=== PATIENT | male | born 1935 | race Caucasian/White ===

== ENCOUNTER 2018-04-04 23:22 | Inpatient (IN) | payer MEDICARE ==
[~2018-04-04] VITALS: Ht 180.3 cm; Wt 104.4 kg
[~2018-04-04 23:22] MED LIST: ALLO100T PO; ASPI-555 PO; CYAN10009 PO; FISH1CAP63 PO; FOLI0.4T2 PO; FURO40TA5 PO; GLIM2TAB3 PO; INSU100V12 SQ; METO-408 PO; MULT-1289 PO; SIMV40TA5 PO; TEST30SO3 TD
[2018-04-04 23:57] LABS: BASOPHILS % (AUTO) 2.3 % (0.0-5.0); EOSINOPHILS % (AUTO) 4.6 % (0.0-8.0); HEMATOCRIT 47.1 % (42-54); LYMPHOCYTES % (AUTO) 15.5 % (21.0-51.0); MEAN CORPUSCULAR HEMOGLOBIN 34.6 pg (27.0-33.0); MEAN CORPUSCULAR HGB CONC 33.4 g/dL (32.0-36.0); MEAN CORPUSCULAR VOLUME 103.6 fL (79-99); MONOCYTES % (AUTO) 21.1 % (3.0-13.0); NEUTROPHILS % (AUTO) 56.5 % (40.0-77.0); PLATELET COUNT (AUTO) 159 K/uL (130-400); RED BLOOD CELL COUNT(AUTO) 4.55 MIL/uL (4.50-6.20); WHITE BLOOD COUNT (AUTO) 15.7 K/uL (4.8-10.8)
[2018-04-05 00:02] LABS: CREATININE 1.7 mg/dL (0.5-1.5); POTASSIUM 3.7 mmol/L (3.5-5.1)
[2018-04-05] MEDS ORDERED: MORPHINE SULFATE 2 MG/ML 1ML SYG ONE (00:04)
[2018-04-05 00:14] LABS: ALBUMIN 3.6 g/dL (3.5-5.0); BILIRUBIN,TOTAL 0.8 mg/dL (0.2-1.0)
[2018-04-05 00:16] LABS: BAND NEUTROPHILS % (MANUAL) 2 % (0-2); EOSINOPHILS % (MANUAL) 5 % (1-6); LYMPHOCYTES % (MANUAL) 18 % (22-44); MAN.DIFF COMMENT-IMPRESSION MANUAL DIFFERENTIAL; MONOCYTES % (MANUAL) 24 % (2-9); PLATELET MORPHOLOGY COMMENT ADEQUATE; SEGMENTED NEUTROPHILS % 51 % (40-70)
[2018-04-05 00:16] LABS: APPEARANCE,URINE Clear (CLEAR); BILIRUBIN,URINE Negative (NEGATIVE); COLOR,URINE Yellow (YELLOW); GLUCOSE, URINE (UA) Negative (NEGATIVE); KETONES,URINE Negative (NEGATIVE); LEUKOCYTE ESTERASE ,URINE Negative (NEGATIVE); NITRATE,URINE Negative (NEGATIVE); OCCULT BLOOD,URINE Negative (NEGATIVE); PH,URINE 5.5 (5.0-8.0); PROTEIN,URINE Negative (NEGATIVE)
[2018-04-05] MEDS ORDERED: SODIUM CHLORIDE 0.9% 1000ML 1,000 ML IV ONE (00:31)
[2018-04-05] MEDS ORDERED: TAMSULOSIN HCL 0.4 MG CAP.ER.24H ONE (00:31)
[2018-04-05 01:27] VITALS: BP 128/63
[2018-04-05] MEDS ORDERED: ACETAMINOPHEN 325 MG TAB PO PRN (01:45)
[2018-04-05] MEDS ORDERED: ONDANSETRON HCL 4 MG/2 ML VIAL IV PRN (01:45)
[2018-04-05] MEDS: SODIUM CHLORIDE 0.9% 1000ML 1,000 ML IV SCH ×4 (01:45→21:45)
[2018-04-05] MEDS: CEFTRIAXONE SODIUM 1 GM IV SCH (01:45)
[2018-04-05] MEDS ORDERED: MORPHINE SULFATE 2 MG/ML 1ML SYG IV PRN (01:45)
[2018-04-05] MEDS ORDERED: CEFTRIAXONE SODIUM 1 GM ONE (02:14)
[2018-04-05] MEDS ORDERED: MORPHINE SULFATE 4 MG/1ML SYG ONE (03:03)
[2018-04-05] MEDS ORDERED: OMEG1CAP67 PO (03:13)
[2018-04-05] MEDS ORDERED: ALLO100T PO (03:13)
[2018-04-05] MEDS ORDERED: INSU100V12 SQ (03:13)
[2018-04-05] MEDS ORDERED: DEXTROSE 50%-WATER 50 ML DISP.SYRIN IV PRN (03:30)
[2018-04-05] MEDS ORDERED: GLUCAGON 1MG KIT 1 MG ML IM PRN (03:30)
[2018-04-05 03:55] VITALS: BP 120/62
[2018-04-05] MEDS: INSULIN HUMULIN R 100 UNIT/ML 3ML SQ SCH ×4 (05:48→21:00)
[2018-04-05 07:30] VITALS: BP 123/61
[2018-04-05] MEDS: CYANOCOBALAMIN (VITAMIN B-12) 1,000 MCG TABLET PO SCH (08:20)
[2018-04-05] MEDS: METOPROLOL TARTRATE 25 MG TAB PO SCH ×2 (08:20→22:41)
[2018-04-05] MEDS: TAMSULOSIN HCL 0.4 MG CAP.ER.24H PO SCH (08:21)
[2018-04-05] MEDS: FUROSEMIDE 40 MG TABLET PO SCH (08:21)
[2018-04-05] MEDS: FOLIC ACID 1 MG TABLET PO SCH (08:21)
[2018-04-05] MEDS: ASPIRIN 81 MG EC TAB PO SCH (08:21)
[2018-04-05] MEDS: FAMOTIDINE 20MG TAB 20 MG TAB PO SCH ×2 (08:21→22:41)
[2018-04-05] MEDS: ENOXAPARIN SODIUM 40 MG/0.4 ML SYRINGE SQ SCH (08:24)
[2018-04-05] MEDS ORDERED: LACTULOSE 20 GM/30 ML UDCUP PO SCH (09:45)
[2018-04-05] MEDS ORDERED: KETOROLAC TROMETHAMINE 15MG/ML IM PRN (10:15)
[2018-04-05 11:30] VITALS: BP 124/69
[2018-04-05 12:37] LABS: MEAN CORPUSCULAR HEMOGLOBIN 34.6 pg (27.0-33.0); MEAN CORPUSCULAR HGB CONC 33.7 g/dL (32.0-36.0); MEAN CORPUSCULAR VOLUME 102.8 fL (79-99); PLATELET COUNT (AUTO) 147 K/uL (130-400); RED BLOOD CELL COUNT(AUTO) 4.67 MIL/uL (4.50-6.20); RED CELL DISTRIBUTION WIDTH 14.9 % (11.0-15.5)
[2018-04-05 12:45] LABS: CREATININE 1.6 mg/dL (0.5-1.5); POTASSIUM 3.8 mmol/L (3.5-5.1)
[2018-04-05] MEDS ORDERED: HYDROCODONE/ACETAMINOPHEN 5/325 MG TAB PO PRN (14:15)
[2018-04-05 16:00] VITALS: BP 117/55
[2018-04-05 20:42] VITALS: BP 123/61
[2018-04-05] MEDS ORDERED: SIMVASTATIN 20 MG TABLET PO SCH (21:00)
[2018-04-06] VITALS (24 sets, daily range): BP systolic 108–144; BP diastolic 53–72
[2018-04-06] MEDS: CEFTRIAXONE SODIUM 1 GM IV SCH (01:10)
[2018-04-06] MEDS: SODIUM CHLORIDE 0.9% 1000ML 1,000 ML IV SCH (01:12)
[2018-04-06] MEDS: INSULIN HUMULIN R 100 UNIT/ML 3ML SQ SCH ×3 (05:43→16:30)
[2018-04-06 06:20] LABS: BASOPHILS % (AUTO) 1.4 % (0.0-5.0); HEMATOCRIT 42.3 % (42-54); LYMPHOCYTES % (AUTO) 14.9 % (21.0-51.0); MEAN CORPUSCULAR HEMOGLOBIN 35.3 pg (27.0-33.0); MEAN CORPUSCULAR HGB CONC 34.3 g/dL (32.0-36.0); MONOCYTES % (AUTO) 29.4 % (3.0-13.0); NEUTROPHILS % (AUTO) 50.3 % (40.0-77.0); NUCLEATED RED BLOOD CELLS 0.1 % (0.0-0.19); PLATELET COUNT (AUTO) 130 K/uL (130-400); RED BLOOD CELL COUNT(AUTO) 4.11 MIL/uL (4.50-6.20); RED CELL DISTRIBUTION WIDTH 14.2 % (11.0-15.5); WHITE BLOOD COUNT (AUTO) 10.3 K/uL (4.8-10.8)
[2018-04-06 06:25] LABS: INR 1.09 (0.85-1.15); PROTHROMBIN TIME 11.4 SEC (9.6-11.6)
[2018-04-06 06:31] LABS: ALBUMIN 2.8 g/dL (3.5-5.0); BILIRUBIN,TOTAL 0.8 mg/dL (0.2-1.0); POTASSIUM 3.9 mmol/L (3.5-5.1); TOTAL PROTEIN, SERUM 5.7 g/dL (6.0-8.3)
[2018-04-06] MEDS ORDERED: MIDAZOLAM HCL 1 MG/ML 2ML VIAL ONE (08:52)
[2018-04-06] MEDS ORDERED: LIDOCAINE PF 2% 5ML ABBOJECT ONE (08:52)
[2018-04-06] MEDS ORDERED: FENTANYL CITRATE PF 50 MCG/1 ML 2ML VIAL ONE (08:52)
[2018-04-06] MEDS ORDERED: ONDANSETRON HCL 4 MG/2 ML VIAL ONE (08:52)
[2018-04-06] MEDS ORDERED: DEXAMETHASONE SOD PHOSPHATE 10MG/ML 1ML VIAL ONE (08:52)
[2018-04-06] MEDS ORDERED: PROPOFOL 10 MG/ML 20ML VIAL IV ONE (08:52)
[2018-04-06] MEDS: FUROSEMIDE 40 MG TABLET PO SCH (09:00)
[2018-04-06] MEDS: ENOXAPARIN SODIUM 40 MG/0.4 ML SYRINGE SQ SCH (09:00)
[2018-04-06] MEDS: FAMOTIDINE 20MG TAB 20 MG TAB PO SCH (09:00)
[2018-04-06] MEDS: CYANOCOBALAMIN (VITAMIN B-12) 1,000 MCG TABLET PO SCH (09:00)
[2018-04-06] MEDS: METOPROLOL TARTRATE 25 MG TAB PO SCH (09:00)
[2018-04-06] MEDS: FOLIC ACID 1 MG TABLET PO SCH (09:00)
[2018-04-06] MEDS: TAMSULOSIN HCL 0.4 MG CAP.ER.24H PO SCH (09:00)
[2018-04-06] MEDS: ASPIRIN 81 MG EC TAB PO SCH (09:00)
[2018-04-06] MEDS ORDERED: IOHEXOL-350 50ML VIAL IV ONE (09:07)
[2018-04-06] MEDS ORDERED: EPHEDRINE SULFATE 50 MG/ML AMPULE ONE (09:11)
== END 2018-04-06 17:55 | disposition home or self-care (01) | DRG 661 ==
LOC: EDH 23:22 → OBSVTOIN 04-05 00:50 → EDHIP 04-05 00:50 → 3DH 04-05 01:29
PROVIDERS: ADMIT Hospitalist; ATTEND Hospitalist
PROC: 0T778DZ Dilation of Left Ureter with Intraluminal Device, Via Natural or Artificial Opening Endoscopic (ICD-10-PCS; principal; 2018-04-06 09:00)
PROC: BT1F1ZZ Fluoroscopy of Left Kidney, Ureter and Bladder using Low Osmolar Contrast (ICD-10-PCS; 2018-04-06 09:00)
DX: N13.2 Hydronephrosis with renal and ureteral calculous obstruction (principal); D72.829 Elevated white blood cell count, unspecified; E11.65 Type 2 diabetes mellitus with hyperglycemia; I10 Essential (primary) hypertension; E78.5 Hyperlipidemia, unspecified; K43.9 Ventral hernia without obstruction or gangrene; K44.9 Diaphragmatic hernia without obstruction or gangrene; K57.90 Diverticulosis of intestine, part unspecified, without perforation or abscess without bleeding; Z79.4 Long term (current) use of insulin; Z85.828 Personal history of other malignant neoplasm of skin; Z88.8 Allergy status to other drugs, medicaments and biological substances; Z80.9 Family history of malignant neoplasm, unspecified; Z83.6 Family history of other diseases of the respiratory system; Z82.3 Family history of stroke; Z83.3 Family history of diabetes mellitus; Z82.49 Family history of ischemic heart disease and other diseases of the circulatory system; N28.9 Disorder of kidney and ureter, unspecified
CPT/HCPCS: 36415; 71045; 74176; 74420; 78700; 80048; 80053; 80061; 81003; 82948; 85025; 85027; 85610; 93005; A4218; A9562; C1894; C2617; J0696; J1100; J1650; J2001; J2250; J2270; J2405; J2704; J3010; J3490; J7030; Q9967

== ENCOUNTER → 2019-04-06 | Outpatient (CLI) | payer MEDICARE ==
[~2019-04-06] MED LIST changes: +CYAN-52 PO; -CYAN10009 PO; -FISH1CAP63 PO; -GLIM2TAB3 PO; +GLIM2TAB4 PO; +OMEG1CAP67 PO; +SIMV-46 PO; -SIMV40TA5 PO
== END | disposition home or self-care (01) ==
LOC: RAH 15:25
PROVIDERS: ATTEND Internal Medicine Cardiovascular Disease
DX: R06.02 Shortness of breath (principal)
CPT/HCPCS: 71046

== ENCOUNTER → 2019-04-28 | Outpatient (CLI) | payer MEDICARE ==
[~2019-04-28] MED LIST changes: +REGADENOSON 0.4 MG/5 ML PF SYG IVP SCH
== END | disposition home or self-care (01) ==
LOC: RAH 08:11
PROVIDERS: ATTEND Internal Medicine Cardiovascular Disease
DX: I24.9 Acute ischemic heart disease, unspecified (principal); R06.02 Shortness of breath
CPT/HCPCS: 78452; 93017; 96374; A9500 ×2; J2785

== ENCOUNTER 2019-08-07 06:43 | Day surgery (SDC) | payer MEDICARE ==
[~2019-08-07] VITALS: Ht 177.8 cm; Wt 101.4 kg
[~2019-08-07 06:43] MED LIST changes: +GLIM2TAB30 PO; -GLIM2TAB4 PO; -REGADENOSON 0.4 MG/5 ML PF SYG IVP SCH; +SODIUM CHLORIDE 0.9% 1000ML 0 ML IV ONE
[2019-08-07 08:24] VITALS: BP 113/60
[2019-08-07] MEDS ORDERED: LOSA25TA41 PO (08:40)
[2019-08-07] MEDS ORDERED: ISOS10TA2 PO (08:40)
--- NOTE | 2019-08-07 08:56 | NUR ---
COUGH [employer] INFORMED THAT PATIENT HAS HAD COUGH WITH PHLEGM, PT COUGH NOTED WITH HARSH COUGH, ANESTHESIA INFORMED EVALUATED PATIENT , STATES PT SHOULD RESCHEDULED DUE TO COUGH AND CONGESTION. DR. MAYFIELD ALSO EVALUTED PATIENT PT TO RESCHEDULE PROCEDURE FOR AFTER AUGUST 18 2019
== END 2019-08-07 09:00 | disposition home or self-care (01) ==
LOC: ENDO 06:43 → DAH 06:43 → ENDO 09:00
PROVIDERS: ATTEND Internal Medicine Gastroenterology
DX: K22.2 Esophageal obstruction (principal); Z53.8 Procedure and treatment not carried out for other reasons; Z88.8 Allergy status to other drugs, medicaments and biological substances; Z79.82 Long term (current) use of aspirin; Z79.899 Other long term (current) drug therapy; Z79.4 Long term (current) use of insulin; Z82.49 Family history of ischemic heart disease and other diseases of the circulatory system; Z83.3 Family history of diabetes mellitus; Z82.3 Family history of stroke
CPT/HCPCS: 82948; J7030

== ENCOUNTER → 2022-05-08 | Outpatient (CLI) | payer MEDICARE ==
[~2022-05-08] MED LIST changes: -ASPI-555 PO; +ASPI-556 PO; -FOLI0.4T2 PO; +FOLI0.4T6 PO; -FURO40TA5 PO; -GLIM2TAB30 PO; +ISOS10TA2 PO; +LOSA25TA41 PO; +OMEG-133 PO; -OMEG1CAP67 PO; -SODIUM CHLORIDE 0.9% 1000ML 0 ML IV ONE; -TEST30SO3 TD
== END | disposition home or self-care (01) ==
LOC: RAH 10:21
PROVIDERS: ATTEND Student in an Organized Health Care Education/Training Program
DX: D47.9 Neoplasm of uncertain behavior of lymphoid, hematopoietic and related tissue, unspecified (principal); R59.0 Localized enlarged lymph nodes
CPT/HCPCS: 76882

== ENCOUNTER → 2022-06-13 | Outpatient (CLI) | payer MEDICARE ==
[2022-06-13 09:37] LABS: INR 1.1 (0.85-1.15); PROTHROMBIN TIME 11.9 SEC (9.6-11.6)
== END | disposition home or self-care (01) ==
LOC: LAB 08:46
PROVIDERS: ATTEND Student in an Organized Health Care Education/Training Program
DX: R59.0 Localized enlarged lymph nodes (principal); D47.9 Neoplasm of uncertain behavior of lymphoid, hematopoietic and related tissue, unspecified
CPT/HCPCS: 36415; 85610; 85730

== ENCOUNTER → 2022-06-14 | Outpatient (CLI) | payer MEDICARE | END | disposition home or self-care (01) | LOC: RAH 07:13 | PROVIDERS: ATTEND Student in an Organized Health Care Education/Training Program | DX: R59.0 Localized enlarged lymph nodes (principal); D47.9 Neoplasm of uncertain behavior of lymphoid, hematopoietic and related tissue, unspecified | CPT/HCPCS: 76882 ==

== ENCOUNTER 2023-01-09 11:14 | Observation (INO) | payer MEDICARE, OTHER ==
[~2023-01-09] VITALS: Ht 180.3 cm; Wt 98.4 kg
[2023-01-09 11:43] LABS: BASOPHILS # (AUTO) 0.17 K/uL (0.00-0.20); BASOPHILS % (AUTO) 1.3 % (0.0-5.0); EOSINOPHILS # (AUTO) 0.46 K/uL (0.00-0.70); EOSINOPHILS % (AUTO) 3.4 % (0.0-8.0); HEMATOCRIT 37.5 % (42-54); IMMATURE GRANULOCYTE ABSOLUTE 1.07 K/uL (0-1); LYMPHOCYTES # (AUTO) 5.2 K/uL (1.0-4.8); LYMPHOCYTES % (AUTO) 38.4 % (21.0-51.0); MEAN CORPUSCULAR HEMOGLOBIN 33.6 pg (27.0-33.0); MEAN CORPUSCULAR HGB CONC 33.9 g/dL (32.0-36.0); MEAN CORPUSCULAR VOLUME 99.2 fL (79-99); MONOCYTES # (AUTO) 1.9 K/uL (0.1-1.0); NEUTROPHILS # (AUTO) 4.7 K/uL (1.8-7.7); PLATELET COUNT (AUTO) 140 K/uL (130-400); RED BLOOD CELL COUNT(AUTO) 3.78 MIL/uL (4.50-6.20); RED CELL DISTRIBUTION WIDTH 14.6 % (11.0-15.5); WHITE BLOOD COUNT (AUTO) 13.5 K/uL (4.8-10.8)
[2023-01-09 11:56] LABS: CREATININE 1.3 mg/dL (0.5-1.5); POTASSIUM 4.2 mmol/L (3.5-5.1)
[2023-01-09 12:00] LABS: ALBUMIN 3.6 g/dL (3.5-5.0); BILIRUBIN,TOTAL 0.7 mg/dL (0.2-1.0); TOTAL PROTEIN, SERUM 6.7 g/dL (6.0-8.3)
[2023-01-09 12:36] LABS: MAGNESIUM 1.7 mg/dL (1.80-2.40)
[2023-01-09 12:53] LABS: ADD UA MICROSCOPIC YES; APPEARANCE,URINE CLEAR (CLEAR); BILIRUBIN,URINE NEGATIVE (NEGATIVE); COLOR,URINE YELLOW (YELLOW); GLUCOSE, URINE (UA) NEGATIVE (NEGATIVE); KETONES,URINE NEGATIVE (NEGATIVE); LEUKOCYTE ESTERASE ,URINE NEGATIVE Leu/uL (NEGATIVE); NITRATE,URINE NEGATIVE (NEGATIVE); OCCULT BLOOD,URINE NEGATIVE (NEGATIVE); PH,URINE 5.5 (5.0-8.0); PROTEIN,URINE 10 mg/dL (NEGATIVE); UROBILINOGEN,URINE 0.2 mg/dL (0.2-1.0)
[2023-01-09 12:55] LABS: MUCUS,URINE RARE LPF (None Seen); RBC,URINE 0-1 /HPF (0-1); SQUAMOUS EPITHELIAL CELL,UR RARE /HPF (0-2); WBC,URINE 0-1 /HPF (0-1)
[2023-01-09] MEDS ORDERED: ISOS20TA85 PO (14:40)
[2023-01-09] MEDS ORDERED: FURO40TA7 PO (14:40)
[2023-01-09] MEDS ORDERED: METO-408 PO (14:40)
[2023-01-09] MEDS ORDERED: SIMV40TA59 PO (14:40)
[2023-01-09] MEDS ORDERED: LOSA50TA64 PO (14:40)
[2023-01-09] MEDS ORDERED: AEC81 PO (14:40)
[2023-01-10] MEDS ORDERED: MAGNESIUM 2GM PREMIX 50ML 50 ML IV ONE (08:19)
[2023-01-10] MEDS ORDERED: KCL 20 MEQ ERTAB PO PRN (08:30)
[2023-01-10] MEDS ORDERED: POTASSIUM CHLORIDE 10% ELIXIR 20 MEQ/15 ML UDCUP PO PRN (08:30)
[2023-01-10] MEDS ORDERED: POTASSIUM CHLORIDE 20MEQ/100ML 100 ML IV PRN ×2 (08:30)
[2023-01-10] MEDS ORDERED: MAGNESIUM 2GM PREMIX 50ML 50 ML IV PRN (08:30)
[2023-01-10] MEDS ORDERED: NITR0.4T50 SL (08:37)
[2023-01-10] MEDS ORDERED: REPA1TAB5 PO (08:37)
[2023-01-10] MEDS ORDERED: ISOS10TA8 PO (08:37)
[2023-01-10] MEDS ORDERED: ROSU20TA73 PO (08:37)
[2023-01-10] MEDS ORDERED: ASCO100031 PO (08:37)
[2023-01-10] MEDS ORDERED: RANO500T6 PO (08:37)
[2023-01-10] MEDS ORDERED: ALLO100T PO (08:37)
[2023-01-10] MEDS: LOSARTAN 50 MG TABLET PO SCH (09:00)
[2023-01-10] MEDS ORDERED: [UNRECOGNIZED DRUG - OTHER] PO SCH (09:00)
[2023-01-10] MEDS: ASPIRIN 81 MG EC TAB PO SCH (09:00)
[2023-01-10] MEDS: METOPROLOL SUCCINATE 25 MG TAB.SR.24H PO SCH (09:00)
[2023-01-10] MEDS: RANOLAZINE 500 MG TAB.SR.12H PO SCH ×2 (09:00→20:49)
[2023-01-10] MEDS: REPAGLINIDE 1 MG TAB PO SCH ×3 (09:00→20:50)
[2023-01-10] MEDS: MULTIVITAMIN WITH MINERALS TABLET PO SCH (09:00)
[2023-01-10] MEDS: CYANOCOBALAMIN (VITAMIN B-12) 1,000 MCG TABLET PO SCH (09:00)
[2023-01-10] MEDS: FISH OIL 1000 MG/CAP PO SCH ×2 (09:00→20:49)
[2023-01-10] MEDS ORDERED: NITROGLYCERIN 0.4 MG SL TAB SL PRN (09:00)
[2023-01-10 15:43] VITALS: O2SAT 98
[2023-01-10 20:40] VITALS: BP 107/49; PULSE 55; RESP 16
[2023-01-10] MEDS ORDERED: ISOSORBIDE MONONITRATE 30 MG PO SCH (21:00)
[2023-01-10] MEDS ORDERED: NON-FORMULARY MEDICATION 1 EACH (Ascorbic Acid (Vitamin C) 1,000 MG) PO SCH (21:00)
[2023-01-10] MEDS ORDERED: ALLOPURINOL 100 MG TABLET PO SCH (21:00)
[2023-01-10] MEDS ORDERED: ASCORBIC ACID 500 MG TAB PO SCH (21:00)
[2023-01-10] MEDS ORDERED: ISOSORBIDE MONO 30MG SR TAB PO SCH (21:00)
[2023-01-10] MEDS ORDERED: FOLIC ACID 0.4 MG PO SCH (21:00)
[2023-01-10] MEDS ORDERED: ATORVASTATIN 40 MG TABLET PO SCH (21:00)
[2023-01-10] MEDS ORDERED: NON-FORMULARY MEDICATION 1 EACH (Rosuvastatin Calcium 20 MG) PO SCH (21:00)
[2023-01-11] VITALS (13 sets, daily range): BP systolic 86–136; BP diastolic 50–66; PULSE 53–85; RESP 16–18
[2023-01-11 03:47] LABS: BASOPHILS # (AUTO) 0.11 K/uL (0.00-0.20); BASOPHILS % (AUTO) 0.9 % (0.0-5.0); EOSINOPHILS # (AUTO) 0.56 K/uL (0.00-0.70); EOSINOPHILS % (AUTO) 4.7 % (0.0-8.0); HEMATOCRIT 35.4 % (42-54); IMMATURE GRANULOCYTE ABSOLUTE 0.97 K/uL (0-1); LYMPHOCYTES # (AUTO) 2.8 K/uL (1.0-4.8); LYMPHOCYTES % (AUTO) 23.3 % (21.0-51.0); MEAN CORPUSCULAR HEMOGLOBIN 34.2 pg (27.0-33.0); MEAN CORPUSCULAR HGB CONC 33.6 g/dL (32.0-36.0); MEAN CORPUSCULAR VOLUME 101.7 fL (79-99); MONOCYTES # (AUTO) 2.6 K/uL (0.1-1.0); MONOCYTES % (AUTO) 21.2 % (3.0-13.0); NEUTROPHILS % (AUTO) 41.8 % (40.0-77.0); PLATELET COUNT (AUTO) 140 K/uL (130-400); RED BLOOD CELL COUNT(AUTO) 3.48 MIL/uL (4.50-6.20); RED CELL DISTRIBUTION WIDTH 14.5 % (11.0-15.5)
[2023-01-11 03:56] LABS: CREATININE 1.2 mg/dL (0.5-1.5); MAGNESIUM 1.9 mg/dL (1.80-2.40); POTASSIUM 3.8 mmol/L (3.5-5.1)
[2023-01-11 04:04] LABS: INR 1.06 (0.85-1.15); PROTHROMBIN TIME 12.2 SEC (9.6-11.6)
[2023-01-11 04:05] LABS: PARTIAL THROMBOPLASTIN TIME 28.7 SEC (26.3-35.5)
[2023-01-11] MEDS: ASPIRIN 81 MG EC TAB PO SCH (08:33)
[2023-01-11] MEDS: LOSARTAN 50 MG TABLET PO SCH (09:00)
[2023-01-11] MEDS: RANOLAZINE 500 MG TAB.SR.12H PO SCH (09:00)
[2023-01-11] MEDS: REPAGLINIDE 1 MG TAB PO SCH ×2 (09:00→14:00)
[2023-01-11] MEDS ORDERED: DiphenhydrAMINE HCL 50 MG/ML VIAL IV ONE (09:00)
[2023-01-11] MEDS ORDERED: SOLU-MEDROL 125MG VIAL IVP ONE (09:00)
[2023-01-11] MEDS: FISH OIL 1000 MG/CAP PO SCH (09:00)
[2023-01-11] MEDS: CYANOCOBALAMIN (VITAMIN B-12) 1,000 MCG TABLET PO SCH (09:00)
[2023-01-11] MEDS: MULTIVITAMIN WITH MINERALS TABLET PO SCH (09:00)
[2023-01-11] MEDS ORDERED: FENTANYL CITRATE PF 50 MCG/1 ML 2ML VIAL ONE (14:26)
[2023-01-11] MEDS ORDERED: BIVALIRUDIN 250 MG/VIAL IV ONE (14:26)
[2023-01-11] MEDS ORDERED: LIDOCAINE HCL 400MG/20ML VIAL ONE (14:26)
[2023-01-11] MEDS ORDERED: MIDAZOLAM HCL 1 MG/ML 2ML VIAL ONE (14:26)
[2023-01-11] MEDS ORDERED: NITROGLYCERIN 50MG VIAL ONE (14:27)
[2023-01-11] MEDS ORDERED: HEPARIN 10,000 UNIT/10ML (1,000 UNIT/ML) VIAL ONE (14:27)
[2023-01-11] MEDS ORDERED: DiphenhydrAMINE HCL 50 MG/ML VIAL ONE (14:31)
[2023-01-11] MEDS ORDERED: SOLU-MEDROL 125MG VIAL ONE (14:31)
[2023-01-11] MEDS ORDERED: 0.9%NACL 1000ML 1,000 ML IV SCH (15:30)
[2023-01-11] MEDS: METOPROLOL SUCCINATE 25 MG TAB.SR.24H PO SCH (19:27)
[2023-01-11] MEDS ORDERED: IOPAMIDOL-370 100 ML VIAL IV ONE (20:24)
[2023-01-11] MEDS ORDERED: ISOVUE-370 50ML VIAL IV ONE (20:24)
== END 2023-01-11 20:25 | disposition home or self-care (01) ==
LOC: EDH 11:14 → EDHIP 12:48 → 4BH 01-10 17:41
PROVIDERS: ADMIT Internal Medicine; ATTEND Internal Medicine
DX: I25.110 Atherosclerotic heart disease of native coronary artery with unstable angina pectoris (principal); R55 Syncope and collapse; I10 Essential (primary) hypertension; E11.9 Type 2 diabetes mellitus without complications; E78.00 Pure hypercholesterolemia, unspecified; Z79.82 Long term (current) use of aspirin; Z79.4 Long term (current) use of insulin; Z79.899 Other long term (current) drug therapy; Z98.890 Other specified postprocedural states; W18.30XA Fall on same level, unspecified, initial encounter
CPT/HCPCS: 99285; 83735 ×3; 84484; 80053; 85025 ×2; 82948 ×6; 83605; 81001; 36415 ×3; 71045; 70450; 93005 ×2; 96365; 96366; 93458; 80048; 85610; 85730; G0378 ×52; J3475; C1894 ×2; C1760 ×2; J1200; Q9967 ×2; J3010; J3490 ×2; J2930; J2250; J1644; 99156; 99157; J0583

== ENCOUNTER 2023-05-02 07:24 | Day surgery (SDC) | payer OTHER ==
[2023-04-30 14:43] LABS: BASOPHILS # (AUTO) 0.15 K/uL (0.00-0.20); BASOPHILS % (AUTO) 1.3 % (0.0-5.0); EOSINOPHILS # (AUTO) 0.54 K/uL (0.00-0.70); EOSINOPHILS % (AUTO) 4.7 % (0.0-8.0); HEMATOCRIT 36.1 % (42-54); IMMATURE GRANULOCYTE ABSOLUTE 0.63 K/uL (0-1); LYMPHOCYTES # (AUTO) 4.1 K/uL (1.0-4.8); LYMPHOCYTES % (AUTO) 35.1 % (21.0-51.0); MEAN CORPUSCULAR HEMOGLOBIN 34.4 pg (27.0-33.0); MEAN CORPUSCULAR VOLUME 104.3 fL (79-99); MONOCYTES # (AUTO) 1.9 K/uL (0.1-1.0); MONOCYTES % (AUTO) 16.1 % (3.0-13.0); NEUTROPHILS # (AUTO) 4.3 K/uL (1.8-7.7); NEUTROPHILS % (AUTO) 37.3 % (40.0-77.0); PLATELET COUNT (AUTO) 141 K/uL (130-400); RED BLOOD CELL COUNT(AUTO) 3.46 MIL/uL (4.50-6.20); RED CELL DISTRIBUTION WIDTH 13.9 % (11.0-15.5); WHITE BLOOD COUNT (AUTO) 11.5 K/uL (4.8-10.8)
[2023-04-30 14:52] LABS: INR 1.01 (0.85-1.15); PROTHROMBIN TIME 11.7 SEC (9.6-11.6)
[2023-04-30 14:53] LABS: CREATININE 1.4 mg/dL (0.5-1.5); POTASSIUM 4.5 mmol/L (3.5-5.1)
[2023-04-30 14:54] LABS: PARTIAL THROMBOPLASTIN TIME 31.3 SEC (26.3-35.5)
[2023-04-30 15:37] VITALS: BP 132/50; PULSE 76; RESP 15
[~2023-05-02] VITALS: Ht 180.3 cm; Wt 103.1 kg
[2023-05-02] VITALS (16 sets, daily range): BP systolic 111–125; BP diastolic 49–66; PULSE 48–60; RESP 13–19
[~2023-05-02 07:24] MED LIST changes: +APIX5TAB PO; +ASCO100031 PO; -ASPI-556 PO; +CALC-1125 PO; -INSU100V12 SQ; -ISOS10TA2 PO; +ISOS10TA8 PO; +LINA5TAB PO; -LOSA25TA41 PO; +LOSA50TA64 PO; +NITR0.4T50 SL; +RANO500T6 PO; +ROSU20TA73 PO; -SIMV-46 PO; +TEST100V IM; +[UNRECOGNIZED DRUG - CODE] PO
[2023-05-02] MEDS ORDERED: CEFAZOLIN SODIUM 1 GM VIAL ONE (07:57)
[2023-05-02] MEDS ORDERED: 0.9%NACL 1000ML 1,000 ML IV ONE (07:57)
[2023-05-02] MEDS ORDERED: CEFAZOLIN SODIUM 2 GM VIAL ONE (07:57)
[2023-05-02] MEDS ORDERED: BACITRACIN 28.4 GM OINT TP ONE (08:15)
[2023-05-02] MEDS ORDERED: LIDOCAINE 1%-EPI 1:100,000 20 ML VIAL ONE (08:16)
[2023-05-02] MEDS ORDERED: MORPHINE 2 MG SYG ONE (09:14)
[2023-05-02] MEDS ORDERED: PROPOFOL 10 MG/ML 20ML VIAL IV ONE ×2 (10:14→11:20)
[2023-05-02] MEDS ORDERED: LIDOCAINE 2%-EPI 1:200,000 20 ML VIAL IJ ONE (10:20)
[2023-05-02] MEDS ORDERED: MIDAZOLAM HCL 1 MG/ML 2ML VIAL ONE (10:21)
[2023-05-02] MEDS ORDERED: FENTANYL CITRATE PF 50 MCG/1 ML 2ML VIAL ONE (10:42)
[2023-05-02] MEDS ORDERED: EPHEDRINE SULFATE 50 MG/ML AMPULE ONE (10:49)
[2023-05-02] MEDS ORDERED: PROPOFOL 1000 MG/100 ML 100 ML IV ONE (11:44)
== END 2023-05-02 14:55 | disposition home or self-care (01) ==
LOC: DAH 07:24
PROVIDERS: ATTEND Otolaryngology Plastic Surgery within the Head & Neck
DX: C44.42 Squamous cell carcinoma of skin of scalp and neck (principal); C44.319 Basal cell carcinoma of skin of other parts of face; C44.41 Basal cell carcinoma of skin of scalp and neck; C44.219 Basal cell carcinoma of skin of left ear and external auricular canal; E11.9 Type 2 diabetes mellitus without complications; I25.10 Atherosclerotic heart disease of native coronary artery without angina pectoris; I10 Essential (primary) hypertension; Z90.49 Acquired absence of other specified parts of digestive tract; Z98.890 Other specified postprocedural states; Z79.01 Long term (current) use of anticoagulants; Z79.899 Other long term (current) drug therapy
CPT/HCPCS: 80048; 85025; 85610; 85730; 36415; 93005; 14021; 14060; 82948; 88305; A6260; A4663; J7030 ×2; A4606; J3010; J3490 ×3; J2270; J2250; J2704 ×3; A4215; A4223; A4222; A4221; A4600; J0690